=== PATIENT | male | born 1965 | race African-American/Black ===

== ENCOUNTER 2024-12-01 15:22 | Inpatient (IN) | payer OTHER ==
[~2024-12-01] VITALS: Ht 193 cm; Wt 104.3 kg
[2024-12-01 15:34] VITALS: O2SAT 99
[2024-12-01 16:46] LABS: BASOPHILS % 1.5 % (0.0-2.0); EOSINOPHILS % 4.2 % (0.0-5.0); HEMATOCRIT. 41.6 % (42.0-52.0); HEMOGLOBIN. 13.8 g/dL (14.0-18.0); LYMPHOCYTES % 47.8 % (20.0-50.0); MEAN PLATELET VOLUME 9.8 fl (7.4-10.4); MONOCYTES % 9.5 % (2.0-8.0); NEUTROPHILS % 37.0 % (40.0-76.0); PLATELET 174 x1000/uL (130-400); RED BLOOD CELL COUNT 4.92 mill/uL (4.7-6.1); RED CELL DISTRIBUTION WIDTH 13.0 % (11.6-14.6)
[2024-12-01 16:58] LABS: CREATININE 1.4 mg/dL (0.6-1.3)
[2024-12-01 16:59] LABS: UREA NITROGEN BLOOD 15 mg/dL (9-23)
[2024-12-01 17:00] LABS: ASPARTATE AMINOTRANSFERASE 26 IU/L (<34)
[2024-12-01 17:01] LABS: BILIRUBIN DIRECT < 0.1 mg/dL (<=3.0); BILIRUBIN TOTAL 0.5 mg/dL (0.1-1.0); PROTEIN TOTAL 7.6 g/dL (6.0-8.3)
[2024-12-01 18:09] LABS: BG DEOXYHEMOGLOBIN 72.7 % (0.0-5.0)
[2024-12-01] MEDS: SODIUM CHLORIDE 0.9% 1,000 ML IV ONE (18:12)
[2024-12-01] MEDS: INSULIN REGULAR (HUMULIN R) 1000UNITS/10ML VIAL IV ONE (18:24)
[2024-12-01 18:48] LABS: CLARITY URINE CLEAR (CLEAR); COLOR URINE YELLOW (YELLOW); GLUCOSE URINE 3+ (NEGATIVE); KETONES URINE NEGATIVE (NEGATIVE); LEUKOCYTE ESTERASE URINE NEGATIVE (NEGATIVE); NITRITE URINE NEGATIVE (NEGATIVE); OCCULT BLOOD URINE TRACE (NEGATIVE); PH URINE 5.0 (4.5-8.0); PROTEIN URINE NEGATIVE (NEGATIVE); SPECIFIC GRAVITY URINE 1.038 (1.005-1.030); UROBILINOGEN URINE 0.2 E.U./dL (0.2-1.0)
[2024-12-01 19:03] LABS: BACTERIA URINE NONE SEEN; SQUAMOUS EPITHELIAL CELL URINE 1+ /lpf (RARE/1+); WBC URINE 0-2 /hpf (0-2)
[2024-12-01 19:11] LABS: TROPONIN I HIGH SENSITIVITY 15 ng/L (3.0-53)
[2024-12-01 20:12] LABS: TROPONIN I HIGH SENSITIVITY 18 ng/L (3.0-53)
[2024-12-01 22:55] VITALS: BP 152/98; PULSE 69; RESP 18; TEMP 36.8072
[2024-12-01 23:55] VITALS: BP 152/98; PULSE 69; RESP 18; TEMP 36.8; O2SAT 99
[2024-12-02] MEDS ORDERED: ONDANSETRON HCL 4MG/2ML INJ IV PRN (00:30)
[2024-12-02] MEDS ORDERED: DEXTROSE 50% WATER 50ML SYRINGE IV PRN (00:30)
[2024-12-02] MEDS ORDERED: MAGNESIUM/ALUMINUM HYDROXIDE/SIMETHICONE 30ML UDC PO PRN (00:30)
[2024-12-02] MEDS ORDERED: DIPHENHYDRAMINE 50MG/ML VIAL IV PRN (00:30)
[2024-12-02] MEDS ORDERED: ACETAMINOPHEN 325MG TABLET PO PRN ×2 (00:30)
[2024-12-02] MEDS ORDERED: ZOLPIDEM TARTRATE 5MG TABLET PO PRN (00:30)
[2024-12-02] MEDS ORDERED: CLONIDINE 0.1MG TABLET PO PRN (00:30)
[2024-12-02] MEDS: INSULIN GLARGINE 100 UNITS/ML SUBCUT SCH (00:41)
[2024-12-02] MEDS: SODIUM CHLORIDE 0.9% 1,000 ML IV SCH (00:42)
[2024-12-02 04:00] VITALS: BP 155/83; PULSE 54; RESP 20; TEMP 35.9; O2SAT 99
[2024-12-02] MEDS ORDERED: METF-1150 MT (05:31)
[2024-12-02] MEDS: SODIUM CHLORIDE 0.9% 3ML FLUSH IVF SCH (06:05)
[2024-12-02] MEDS: BLOOD SUGAR DIAGNOSTIC STRIP TEST SCH (06:14)
[2024-12-02] MEDS: INSULIN LISPRO 100 UNITS/ML SUBCUT SCH (06:47)
[2024-12-02 08:00] VITALS: BP 169/94; PULSE 55; RESP 20; TEMP 36.2; O2SAT 100
[2024-12-02] MEDS: ENOXAPARIN 30MG/0.3ML SYR SUBCUT SCH (09:50)
[2024-12-02] MEDS: LOSARTAN 50 MG TABLET PO SCH (09:51)
[2024-12-02] MEDS: AMLODIPINE 2.5MG TABLET PO SCH (09:51)
[2024-12-02 11:56] VITALS: BP 128/71; PULSE 77; RESP 20; TEMP 36.3; O2SAT 100
[2024-12-02 15:56] VITALS: BP 136/74; PULSE 85; RESP 20; TEMP 97.6
[2024-12-02 16:00] VITALS: BP 133/71; PULSE 61; RESP 29; TEMP 36.4; O2SAT 100
== END 2024-12-02 18:50 | disposition home or self-care (01) | DRG 639 ==
LOC: ER 15:22 → EDBEDREQTM 20:45 → EDBEDREQ 20:45 → ENRESERV 22:33 → 8WST 22:58
PROVIDERS: ADMIT Internal Medicine; ATTEND Internal Medicine
DX: E11.00 Type 2 diabetes mellitus with hyperosmolarity without nonketotic hyperglycemic-hyperosmolar coma (NKHHC) (principal); I10 Essential (primary) hypertension
CPT/HCPCS: 36415; 80048; 80076; 81003; 82010; 82375; 82803; 82962; 83036; 84484; 85025; 93005; 99291; J1650; J1815; J7030